=== PATIENT | male | born 1985 | race Caucasian/White ===

== ENCOUNTER 2017-11-26 20:58 | Emergency (ER) | payer OTHER ==
[~2017-11-26] VITALS: Ht 190.5 cm; Wt 83.9 kg
[~2017-11-26 20:58] MED LIST: ACET325; AMOX500 PO; ASPI325; CYCL10 PO; HYDACE5 PO; IBUP200; NAPR500 PO; Norco 5-325 Ta1 EACH PO; OXYACE5T PO; PENVK500 PO; PRED20 PO; Percocet 5-3251 EACH PO; Valium5 MG PO; Veetids 500500 MG PO
[2017-11-26] MEDS ORDERED: Bactrim Ds Tab1 EACH PO (22:14)
== END 2017-11-26 22:18 | disposition home or self-care (01) ==
LOC: ER 20:58
DX: L03.011 Cellulitis of right finger (principal); F17.210 Nicotine dependence, cigarettes, uncomplicated
CPT/HCPCS: 73140; 99283-25

== ENCOUNTER 2018-06-29 16:17 | Emergency (ER) | payer OTHER ==
[~2018-06-29] VITALS: Ht 190.5 cm; Wt 90.7 kg
[~2018-06-29 16:17] MED LIST changes: +Bactrim Ds Tab1 EACH PO
[2018-06-29] MEDS ORDERED: METPRE4DP PO (17:09)
== END 2018-06-29 17:14 | disposition home or self-care (01) ==
LOC: ER 16:17
DX: S76.311A Strain of muscle, fascia and tendon of the posterior muscle group at thigh level, right thigh, initial encounter (principal); S86.111A Strain of other muscle(s) and tendon(s) of posterior muscle group at lower leg level, right leg, initial encounter; F17.210 Nicotine dependence, cigarettes, uncomplicated; X58.XXXA Exposure to other specified factors, initial encounter
CPT/HCPCS: 99283

== ENCOUNTER 2019-04-08 23:20 | Emergency (ER) | payer OTHER ==
[~2019-04-08] VITALS: Ht 190.5 cm; Wt 81.7 kg
[~2019-04-08 23:20] MED LIST changes: +METPRE4DP PO
[2019-04-08] MEDS ORDERED: Floxin10 ML RIGHTEAR (23:56)
[2019-04-08] MEDS ORDERED: IBUP600 PO (23:56)
== END 2019-04-09 00:32 | disposition home or self-care (01) ==
LOC: ER 23:20
DX: H60.91 Unspecified otitis externa, right ear (principal); F17.210 Nicotine dependence, cigarettes, uncomplicated
CPT/HCPCS: 99282; A9270

== ENCOUNTER 2019-04-10 21:06 | Observation (INO) | payer OTHER ==
[~2019-04-10] VITALS: Ht 190.5 cm; Wt 85.3 kg
[~2019-04-10 21:06] MED LIST changes: +Floxin10 ML RIGHTEAR; +IBUP600 PO
[2019-04-10 22:00] LABS: BASOPHILS ABSOLUTE AUTO 0.18 K/mm3 (0.00-0.23); BASOPHILS PERCENT AUTO 1 % (0-2); Hemoglobin 14.1 g/dL (13.5-17.5); LYMPHOCYTES ABSOLUTE AUTO 1.17 K/mm3 (0.84-5.20); LYMPHOCYTES PERCENT AUTO 4 % (21-46); MONOCYTES ABSOLUTE AUTO 0.59 K/mm3 (0.16-1.47); MONOCYTES PERCENT AUTO 2 % (4-13); Mean Corpuscular HGB 30.9 pg (26.0-34.0); Mean Corpuscular HGB Conc 34.4 g/dL (31.5-36.5); Mean Corpuscular Volume 90 fL (80-100); Mean Platelet Volume 9.8 fL (9.1-12.4); Platelet Count 318 K/mm3 (150-400); RDW Coefficient Variation 12.7 % (11.7-14.2); Red Blood Cell Count 4.57 M/mm3 (4.30-5.90); White Blood Cell Count 30.32 K/mm3 (4.00-11.30)
[2019-04-10 22:01] LABS: EOSINOPHILS ABSOLUTE AUTO 0.01 K/mm3 (0.00-0.68); EOSINOPHILS PERCENT AUTO 0 % (0-6); IMMATURE GRAN ABSOLUTE AUTO 0.94 K/mm3 (0.00-0.10); IMMATURE GRAN PERCENT AUTO 3 % (0-1); NEUTROPHILS ABSOLUTE AUTO 27.43 K/mm3 (1.96-9.15); NEUTROPHILS PERCENT AUTO 91 % (41-73)
[2019-04-10 22:22] LABS: Alanine Aminotransfer (ALT/SGP 24 U/L (12-78); Albumin, Blood 2.8 g/dL (3.4-5.0); Albumin/Globulin Ratio 0.7 (0.8-1.8); Alk Phos 107 U/L (50-136); Anion Gap 12 mmol/L (6-16); Aspartate Aminotrans (AST/SGOT 11 U/L (12-37); Bilirubin, Total 0.6 mg/dL (0.1-1.0); Blood Urea Nitrogen 17 mg/dL (8-24); Bun/Creatinine Ratio 18.5 (12.0-20.0); CO2, Blood 20 mmol/L (21-32); Calcium, Blood 8.9 mg/dL (8.5-10.1); Chloride, Blood 98 mmol/L (98-108); Creatinine, Blood 0.92 mg/dL (0.60-1.20); Glomerular Filtration Rate >60 (60-); Glucose, Blood 116 mg/dL (70-99); Potassium, Blood 3.9 mmol/L (3.5-5.5); Sodium, Blood 130 mmol/L (136-145); Total Protein, Blood 6.8 g/dL (6.4-8.2)
[2019-04-10 22:24] LABS: BAND PERCENT MAN 22 % (0-8); BASOPHILS PERCENT MAN 0 % (0-2); EOSINOPHILS PERCENT MAN 0 % (0-6); LYMPHOCYTES ABSOLUTE MAN 1.21 K/mm3 (0.84-5.20); LYMPHOCYTES PERCENT MAN 4 % (21-46); METAMYELOCYTE PERCENT MAN 2 % (0-0); MONOCYTES ABSOLUTE MAN 1.51 K/mm3 (0.16-1.47); MONOCYTES PERCENT MAN 5 % (4-13); NEUTROPHILS ABSOLUTE MAN 26.98 K/mm3 (1.96-9.15); SEG NEUTROPHILS PERCENT MAN 67 % (41-73); TOTAL CELLS COUNTED 100
[2019-04-11 05:16] LABS: Adenovirus Not Detected (NOT DETECT); Bordetella pertussis Not Detected (NOT DETECT); Chlamydophila pneumoniae Not Detected (NOT DETECT); Coronavirus 229E Not Detected (NOT DETECT); Coronavirus HKU1 Not Detected (NOT DETECT); Coronavirus NL63 Not Detected (NOT DETECT); Coronavirus OC43 Not Detected (NOT DETECT); Human Metapneumovirus Not Detected (NOT DETECT); Human Rhinovirus/Enterovirus Detected (NOT DETECT); Influenza A Not Detected (NOT DETECT); Influenza A/2009-H1 Not Detected (NOT DETECT); Influenza A/H1 Not Detected (NOT DETECT); Influenza A/H3 Not Detected (NOT DETECT); Influenza B Not Detected (NOT DETECT); Mycoplasma pneumoniae Not Detected (NOT DETECT); Parainfluenza Virus 1 Not Detected (NOT DETECT); Parainfluenza Virus 2 Not Detected (NOT DETECT); Parainfluenza Virus 3 Not Detected (NOT DETECT); Parainfluenza Virus 4 Not Detected (NOT DETECT); Respiratory Syncytial Virus Not Detected (NOT DETECT)
--- NOTE | 2019-04-11 06:22 | NUR ---
resting quietly, afebrile, denies n/v, call light in reach, states he is feeling much better, stated lovenox shot hurt like a stab, no redness or other unusual symptoms, bed in low position, call light in reach, room air,states shot site no longer hurts and is not red or warm, will continue to monitor and treat
[2019-04-11 08:13] LABS: Hematocrit 36.7 % (37.0-53.0); Hemoglobin 12.5 g/dL (13.5-17.5); Mean Corpuscular HGB 30.7 pg (26.0-34.0); Mean Corpuscular HGB Conc 34.1 g/dL (31.5-36.5); Mean Corpuscular Volume 90 fL (80-100); Mean Platelet Volume 10.4 fL (9.1-12.4); Platelet Count 282 K/mm3 (150-400); RDW Coefficient Variation 12.7 % (11.7-14.2); Red Blood Cell Count 4.07 M/mm3 (4.30-5.90); White Blood Cell Count 26.34 K/mm3 (4.00-11.30)
[2019-04-11 08:43] LABS: BAND PERCENT MAN 14 % (0-8); BASOPHILS PERCENT MAN 0 % (0-2); EOSINOPHILS PERCENT MAN 0 % (0-6); LYMPHOCYTES % ATYPICAL MANUAL 1 % (0-0); LYMPHOCYTES ABSOLUTE MAN 2.37 K/mm3 (0.84-5.20); LYMPHOCYTES PERCENT MAN 8 % (21-46); MONOCYTES ABSOLUTE MAN 1.05 K/mm3 (0.16-1.47); MONOCYTES PERCENT MAN 4 % (4-13); NEUTROPHILS ABSOLUTE MAN 22.91 K/mm3 (1.96-9.15); SEG NEUTROPHILS PERCENT MAN 73 % (41-73); TOTAL CELLS COUNTED 100
[2019-04-11 08:48] LABS: Anion Gap 7 mmol/L (6-16); Blood Urea Nitrogen 18 mg/dL (8-24); Bun/Creatinine Ratio 20.1 (12.0-20.0); CO2, Blood 24 mmol/L (21-32); Calcium, Blood 8.2 mg/dL (8.5-10.1); Chloride, Blood 109 mmol/L (98-108); Glomerular Filtration Rate >60 (60-); Glucose, Blood 93 mg/dL (70-99); Potassium, Blood 4.1 mmol/L (3.5-5.5)
[2019-04-11 08:51] LABS: Sodium, Blood 140 mmol/L (136-145)
--- NOTE | 2019-04-11 16:50 | NUR ---
SHIFT SUMMARY PT A&Ox4. CALM AND COOPERATIVE WITH CARE. PT UP IND IN ROOM. USES CALLS APPROPRIATELY. PT DENIES SOB, SPO2 >94%; BREATHING EVEN AND LABORED AT TIMES; LS CLEAR T/O SHIFT. PT DENIES PAIN, LIGHTHEADED AND DIZZINESS AND NAUSEA T/O SHIFT. PT REPORT FACIAL CONGESTION. PT OUT TO SMOKE THIS EVENING; UPON RETURNING TO ROOM PT AND FAMILY MEMBER REPORTS THAT HE WAS COUGHING UP BLOOD; PT COUGHED UP CLEAR SPUTUM IN ROOM; LATER IN SHIFT PT COUGHED UP RED LACED SPUTUM; DR GIPSON NOTIFIED; NO NEW ORDERS. PT RECEIVING ANTIBIOTICS EAR DROPS IN RIGHT EAR. VSS. NO OTHER ACUTE CHANGES NOTED DURING SHIFT. PLANS TO TRANSFER PT TO ROOM 301, WILL GIVE TELEPHONE REPRT TO ONCOMING RN.
--- NOTE | 2019-04-11 18:01 | NUR ---
PCU TRANSFER- PT ARRIVED TO ROOM 301 VIA W/C FROM PCU AT 1755. PT A/OX4 UP AMBULATING IN ROOM. LS CLEAR, ON RA. PROCTIVE COUGH WITH YELLOW/PINK SPUTUM. PT DENIES ANY COMPLAINTS OR NEEDS AT THIS TIME. PT ORIENTED TO ROOM AND CALL SYSTEM, CALL LIGHT IN REACH.
--- NOTE | 2019-04-12 03:58 | NUR ---
SHIFT SUMMARY PT HAD NO ISSUES NOTED. LAB REPORTED A POSITIVE BLOOD CULTURE. PT HAS SLEPT OFF AND ON T/O SHIFT. PT CURRENTLY SLEEPING IN NO DISTRESS. CALL LIGHT IN REACH.
[2019-04-12 06:12] LABS: BASOPHILS ABSOLUTE AUTO 0.06 K/mm3 (0.00-0.23); BASOPHILS PERCENT AUTO 0 % (0-2); EOSINOPHILS PERCENT AUTO 1 % (0-6); Hematocrit 36.7 % (37.0-53.0); Hemoglobin 12.4 g/dL (13.5-17.5); IMMATURE GRAN ABSOLUTE AUTO 0.37 K/mm3 (0.00-0.10); IMMATURE GRAN PERCENT AUTO 2 % (0-1); LYMPHOCYTES ABSOLUTE AUTO 2.29 K/mm3 (0.84-5.20); LYMPHOCYTES PERCENT AUTO 11 % (21-46); MONOCYTES ABSOLUTE AUTO 0.77 K/mm3 (0.16-1.47); MONOCYTES PERCENT AUTO 4 % (4-13); Mean Corpuscular HGB 30.5 pg (26.0-34.0); Mean Corpuscular HGB Conc 33.8 g/dL (31.5-36.5); Mean Corpuscular Volume 90 fL (80-100); Mean Platelet Volume 10.6 fL (9.1-12.4); NEUTROPHILS ABSOLUTE AUTO 17.61 K/mm3 (1.96-9.15); NEUTROPHILS PERCENT AUTO 83 % (41-73); Platelet Count 293 K/mm3 (150-400); RDW Coefficient Variation 12.9 % (11.7-14.2); RDW Standard Deviation 42.6 fL (35.1-46.3); Red Blood Cell Count 4.06 M/mm3 (4.30-5.90)
[2019-04-12] MEDS ORDERED: GUAI600T33 PO (09:15)
[2019-04-12] MEDS ORDERED: LEVOFLOXACIN750 MG PO (09:15)
--- NOTE | 2019-04-12 10:36 | NUR ---
PT DISCHARGED PT DISCHARGED AT 1032. PT EDUCATED ON DC INSTRUCTIONS AND NEW MEDS. PT SENT WITH DC INSTRUCTIONS. PT REFUSED WHEELCHAIR RIDE OUT OF HOSP. FRIEND TO PIC UP PT. HOME EAR DROPS GIVEN TO PT. IV REMOVED & INTACT.
== END 2019-04-12 10:34 | disposition home or self-care (01) ==
LOC: ER 21:06 → PCU 21:07 → MEDS 21:07 → PCU 21:07 → ER 04-11 03:05 → PCU 04-11 03:10 → MEDS 04-11 17:55 → ENPENDDIS 04-12 09:17 → MEDS 04-12 10:34
PROVIDERS: Hospitalist; Nurse Practitioner Acute Care; Physician Assistant; ADMIT Internal Medicine
DX: A41.9 Sepsis, unspecified organism (principal); R65.20 Severe sepsis without septic shock; J18.9 Pneumonia, unspecified organism; E87.1 Hypo-osmolality and hyponatremia; F17.210 Nicotine dependence, cigarettes, uncomplicated; H60.92 Unspecified otitis externa, left ear; M54.17 Radiculopathy, lumbosacral region; Z79.1 Long term (current) use of non-steroidal anti-inflammatories (NSAID); Z59.0 Homelessness
CPT/HCPCS: 0099U; 36415; 71046; 80048; 80053; 83605; 85025; 87040; 87449; 94640; 96365; 96366; 96367; 96376; 99285-25; G0378; J0456; J0696; J1650; J7030; J7050; J7512

== ENCOUNTER 2019-10-25 17:25 | Emergency (ER) | payer OTHER ==
[~2019-10-25] VITALS: Ht 190.5 cm; Wt 81.7 kg
[~2019-10-25 17:25] MED LIST changes: +GUAI600T33 PO; +LEVOFLOXACIN750 MG PO
[2019-10-25] MEDS ORDERED: IBUP400 PO (21:13)
[2019-10-25] MEDS ORDERED: MINO50 PO (21:13)
== END 2019-10-25 21:43 | disposition home or self-care (01) ==
LOC: ER 17:25
DX: L03.114 Cellulitis of left upper limb (principal); F17.210 Nicotine dependence, cigarettes, uncomplicated
CPT/HCPCS: 10060; 87070; 87075; 87077; 87147; 87186; 87205; 99283-25

== ENCOUNTER 2019-12-06 19:48 | Emergency (ER) | payer OTHER ==
[~2019-12-06] VITALS: Ht 190.5 cm; Wt 90.7 kg
[~2019-12-06 19:48] MED LIST changes: +IBUP400 PO; +MINO50 PO
== END 2019-12-06 22:19 | disposition home or self-care (01) ==
LOC: ER 19:48
DX: S70.11XA Contusion of right thigh, initial encounter (principal); S80.01XA Contusion of right knee, initial encounter; F17.210 Nicotine dependence, cigarettes, uncomplicated; W22.8XXA Striking against or struck by other objects, initial encounter
CPT/HCPCS: 73562-RT; 99283-25

== ENCOUNTER 2020-05-07 18:11 | Emergency (ER) | payer OTHER ==
[~2020-05-07] VITALS: Ht 190.5 cm; Wt 81.7 kg
[2020-05-07] MEDS ORDERED: IBUP400 PO (19:58)
[2020-10-11] MEDS ORDERED: CEPH500 PO (17:00)
[2020-10-11] MEDS ORDERED: IBUP400 PO (17:00)
[2020-10-11] MEDS ORDERED: Vibramycin100 MG PO (17:00)
== END 2020-05-07 20:09 | disposition home or self-care (01) ==
LOC: ER 18:11
DX: M79.674 Pain in right toe(s) (principal); F17.200 Nicotine dependence, unspecified, uncomplicated
CPT/HCPCS: 73630; 99283-25; A9270

== ENCOUNTER 2020-09-12 12:53 | Emergency (ER) | payer OTHER ==
[~2020-09-12] VITALS: Ht 190.5 cm; Wt 83.9 kg
[2020-09-12] MEDS ORDERED: CEPH500 PO (14:23)
[2020-09-12] MEDS ORDERED: Vibramycin100 MG PO (14:23)
[2020-10-11] MEDS ORDERED: Vibramycin100 MG PO (17:00)
[2020-10-11] MEDS ORDERED: CEPH500 PO (17:00)
[2020-10-11] MEDS ORDERED: IBUP400 PO (17:00)
== END 2020-09-12 14:45 | disposition home or self-care (01) ==
LOC: ER 12:53
DX: J34.0 Abscess, furuncle and carbuncle of nose (principal); F17.210 Nicotine dependence, cigarettes, uncomplicated
CPT/HCPCS: 99282; A9270

== ENCOUNTER 2020-12-19 21:11 | Emergency (ER) | payer OTHER ==
[~2020-12-19] VITALS: Ht 190.5 cm; Wt 83.9 kg
[~2020-12-19 21:11] MED LIST changes: +CEPH500 PO; +Vibramycin100 MG PO
== END 2020-12-19 23:58 | disposition home or self-care (01) ==
LOC: ER 21:11
DX: S90.31XA Contusion of right foot, initial encounter (principal); F17.210 Nicotine dependence, cigarettes, uncomplicated; W22.8XXA Striking against or struck by other objects, initial encounter
CPT/HCPCS: 73630; 96374; 99283-25; J1885